=== PATIENT | male | born 1985 | race Caucasian/White ===

== ENCOUNTER 2022-10-03 15:40 | Outpatient (CLI) | payer OTHER, SELFPAY ==
--- NOTE | 2022-10-03 15:00 | CRLHL7_ITS ---
For Patients: As a result of the Century Cures Act, medical imaging exams and procedure reports are released immediately into your electronic medical record. You may view this report before your referring provider. If you have questions, please contact your health care provider. INDICATION: Sinusitis. TECHNIQUE: Noncontrast CT images acquired through the paranasal sinuses. COMPARISON: CT neck 12/05/2013. FINDINGS: No air-fluid levels to suggest acute sinusitis. The right maxillary sinus is hypoplastic. Multiple small retention cysts or polyps in the maxillary sinuses, larger on the right. These have increased in size compared to the prior CT. There is mild maxillary sinus mucosal thickening bilaterally. The right ethmoid infundibulum is partially opacified. The left ethmoid infundibulum is widely patent. Severe opacification of the right frontal recess. There is otherwise mild mucosal thickening in the right frontal sinus. Mild mucosal thickening in the left frontal recess. The left frontal sinus is otherwise clear. Cuwx-us-gqrvoscm mucosal thickening in the anterior ethmoid air cells. Mild mucosal thickening in the posterior ethmoid air cells. Mild mucosal thickening in the sphenoid sinuses. The sphenoethmoidal recesses are widely patent. Elongated opacities within the bilateral mid nasal cavity, larger on the right. There is 5 mm leftward nasal septal deviation. Trace right mastoid fluid. IMPRESSION: 1. Multiple small retention cysts or polyps in the maxillary sinuses, larger on the right. The right ethmoid infundibulum is partially opacified. Elongated opacities within the bilateral mid nasal cavity raise the possibility of underlying lesions, such as polyps. Direct visualization is offered for further evaluation. 2. Severe opacification of the right frontal recess. Mevu-jq-wzohufdp opacification of the anterior ethmoid air cells. No air-fluid levels to suggest acute sinusitis. 3. Leftward nasal septal deviation. Please note that all CT scans at this facility use dose modulation, iterative reconstruction, and/or weight-based dosing when appropriate to reduce radiation dose to as low as reasonably achievable. Dictated by Valentin Yan MD @ 10/04/2022 5:21:38 PM (Electronically Signed)
== END 2022-10-03 15:41 | disposition home or self-care (01) ==
LOC: CT 15:40
PROVIDERS: PCP Family Medicine; Visit Provider Otolaryngology
DX: J32.9 Chronic sinusitis, unspecified (principal); J34.1 Cyst and mucocele of nose and nasal sinus; J34.2 Deviated nasal septum
CPT/HCPCS: 70486

== ENCOUNTER 2022-10-29 19:33 | Outpatient (CLI) | payer OTHER, SELFPAY ==
--- NOTE | 2022-11-11 12:42 | W.PM.SLEEP ---
Sleep Study Details Details Interpreting Provider: Jyoti Date of Sleep Study: 10/29/22 Sleep Study Details: STUDY TYPE:? Home ? BMI:? 31.5 ORDERING PROVIDER:Emily Montes INDICATION:? Concerns about sleep apnea ? SLEEP SUMMARY:? 244.5 minutes monitored. Note the portions of tracing with no flow signal are oxygen data removed from analysis RESPIRATORY SUMMARY:? AHI 6.6 Low oxygen 88 0.9% of study oxygen less than 90% Snoring 14.4% PERIODIC LIMB MOVEMENTS OF SLEEP:? Not recorded CARDIAC:? Range 51-102, mean 66.9 beats per minute IMPRESSION:? Mild obstructive sleep apnea RECOMMENDATION: Treatment options would depend on if the patient is symptomatic. Treatment options would include CPAP, dental appliance and/or airway expansion surgery.
== END 2022-10-29 19:34 | disposition home or self-care (01) ==
LOC: SLEEP 19:33
PROVIDERS: PCP Family Medicine; Visit Provider Otolaryngology
DX: G47.33 Obstructive sleep apnea (adult) (pediatric) (principal)
CPT/HCPCS: 95806

== ENCOUNTER 2022-12-04 10:01 | Outpatient (CLI) | payer OTHER, SELFPAY | END 2022-12-04 10:02 | disposition home or self-care (01) | LOC: LONREF 10:02 | PROVIDERS: PCP Family Medicine; Visit Provider Nurse Practitioner Family | DX: Z01.818 Encounter for other preprocedural examination (principal) | CPT/HCPCS: 80048 ==

== ENCOUNTER 2022-12-19 08:49 | Day surgery (SDC) | payer OTHER, SELFPAY ==
[2022-12-19] VITALS (14 sets, daily range): BP systolic 113–139; BP diastolic 69–94; PULSE 72–89; RESP 16; TEMP 36.4–36.9; O2SAT 95–100; BMI 28.9
--- NOTE | 2022-12-19 09:19 | W.ANESCHARGE ---
Anesthesia Charges Start Date/Time Anesthesia Start Date: 12/19/22 Anesthesia Start Time: 10:39 Stop Date/Time Anesthesia Stop Date: 12/19/22 Anesthesia Stop Time: 11:38
[2022-12-19] MEDS: OXYMETAZOLINE 0.05% NASAL SPRAY 2 SPRAY NOSTRIL-B (09:20)
[2022-12-19] MEDS: LACTATED RINGERS 1000 ML 1,000 ML 100 ML IV (09:30)
[2022-12-19] MEDS: SODIUM CHLORIDE 0.9 % (FLUSH) 10 ML SYRINGE IVF (09:37)
[2022-12-19] MEDS: COCAINE HCL 4 % 4 ML SOLUTION NOSTRIL-B (10:55)
[2022-12-19] MEDS: BUPIVACAINE 0.5%/EPINEPHRINE 0.9 MG (30.9 ML) INJECTION (10:56)
[2022-12-19] MEDS: AYR SALINE NASAL GEL 1 APPLIC NOSTRIL-B (11:01)
[2022-12-19] MEDS: hydrOXYzine pamoate 25 MG CAPSULE PO (11:13)
[2022-12-19] MEDS: MUPIROCIN 1 GM PACKET 1 APPLIC TOPICAL (11:19)
--- NOTE | 2022-12-19 11:28 | W.PM.ENTPROC ---
Procedure Note Date of procedure: 12/19/22 Procedure: Preoperative diagnosis bilateral ethmoid sinusitis, right frontal sinusitis, deviated septum, inferior turbinate hypertrophy, enlargement left and right middle turbinates, nasal obstruction, headache Postoperative diagnosis same plus polyps left middle meatus Procedure is nasal septoplasty, submucous partial resection inferior turbinate bilateral, endoscopic left nasal polypectomy, ethmoidectomy complete, right endoscopic ethmoidectomy complete and right frontal balloon sinus dilation Noted Appthority image guidance with good registration was used throughout the procedure. Under general endotracheal anesthesia patient was prepped and draped in usual fashion the nose injected and decongested. A right hemitransfixion incision was made left anterior and posterior tunnels were created. A vertical incision was made through the cartilage anterior to the bone and a right posterior tunnel create. the posterior deflected portions of septal bone and cartilage was resected by cutting above and below with an angled scissors and removing the piece with the Desmond forceps. This piece was trimmed and returned to the midline of the nasal septum. A stab incision was made in the anterior of the right inferior turbinate a tunnel created with a Samia dissector. Anterior conservative anterior submucous resection was performed with Leona forceps. Hemostasis was achieved with Coblation Wand and then that was used to cauterize intramurally in the inferior 10% more posteriorly. This was repeated on the left side in identical fashion. The left middle turbinate was crushed with the Dimmitt forceps and medialized. Several polyps were visible at the middle meatal region. These were removed. The ethmoid bulla was taken down and dissection carried out in an anterior to posterior direction removing a moderate amount of polypoid tissue. This was more impressive that have been noted on the scan. On the right side of the nose the middle turbinate was markedly enlarged and was crushed with the Desmond forceps. The ethmoid bulla was taken down and dissection carried out in an anterior to posterior direction again removing a moderate amount of polypoid tissue. The frontal balloon was then and produced into the frontal recess utilizing image guidance in 2 dilations were performed on the right frontal sinus drainage channel. The hemitransfixion had already been closed with 2 4-0 chromic sutures. Silastic stents were secured with 2 3-0 nylon sutures. a Merocel pack was placed in each middle meatus. The patient procedure well was taken recovery in satisfactory condition. Blood loss during procedure less than 50 mL. Surgeon: José Antonio Martell MD
--- NOTE | 2022-12-19 11:36 | W.ANESCHARGE ---
Anesthesia Charges Start Date/Time Anesthesia Start Date: 12/19/22 Anesthesia Start Time: 10:39 Stop Date/Time Anesthesia Stop Date: 12/19/22 Anesthesia Stop Time: 11:38
[2022-12-19] MEDS: fentaNYL 100 MCG/2 ML inj 50 MCG IVP (11:39)
[2022-12-19] MEDS: ACETAMINOPHEN 325 MG TABLET PO (12:17)
[2022-12-19] MEDS: OXYCODONE 5 MG TABLET PO (12:18)
[2022-12-19] MEDS: IBUPROFEN 200 MG TABLET PO (12:18)
== END 2022-12-19 13:46 | disposition home or self-care (01) ==
PROVIDERS: PCP Family Medicine; Visit Provider Otolaryngology
PROC: (CPT 31231; principal; 2022-12-19 10:15)
DX: J32.2 Chronic ethmoidal sinusitis (principal); J32.1 Chronic frontal sinusitis; J34.2 Deviated nasal septum; J34.3 Hypertrophy of nasal turbinates; R51.9 Headache, unspecified; J33.8 Other polyp of sinus
CPT/HCPCS: 30520; 30140; 31237; 31253; 00160; 88305; A9270; C1726; J0330; J1100; J2405; J2704; J3010; J7120

== ENCOUNTER 2025-01-30 07:10 | Outpatient (CLI) | payer OTHER, SELFPAY | END 2025-01-30 07:11 | disposition home or self-care (01) | LOC: NFLDREF 02-02 12:55 | PROVIDERS: PCP Family Medicine; Referring Provider Family Medicine; Visit Provider Nurse Practitioner Family | DX: Z00.00 Encounter for general adult medical examination without abnormal findings (principal); G57.92 Unspecified mononeuropathy of left lower limb; E66.3 Overweight; E11.9 Type 2 diabetes mellitus without complications; Z13.9 Encounter for screening, unspecified; Z13.6 Encounter for screening for cardiovascular disorders | CPT/HCPCS: 80053; 80061; 82043; 82570 ==

== ENCOUNTER 2025-07-28 01:26 | Emergency (ER) | payer OTHER, SELFPAY ==
--- OUTSIDE RECORDS SUMMARY | 2025-07-28 01:29 | XMS_ITS | Clinical Summary ---
Author Organization [facility] Address [address] [place] [address] Care Team Providers Care Product Support Analyst Name Role Phone Chapin Helms MD Primary Care Provider [phone] Allergies No known active allergies Medications MedicationSigDispense QuantityRefillsLast FilledStart DateEnd DateStatus oxyCODONE (ROXICODONE) 5 MG tablet Take 1 tablet (5 mg) by mouth every 6 hours as needed for pain 10 tablet 08/30/2019Active Social History Tobacco UseTypesPacks/DayYears UsedDateSmoking Tobacco: Never AssessedSex and Gender InformationValueDate RecordedSex Assigned at BirthNot on fileLegal Sex Male08/30/2019 2:49 PM CSTGender IdentityNot on fileSexual OrientationNot on file Last Filed Vital Signs Vital SignReadingTime TakenCommentsBlood Ltjluuwh810/1377308/30/2019 2:55 PM MERCHANT [employer]OR Pulse--Igijkaabgft42.7 ??C (99.9 ??F)08/30/2019 2:55 PM CSTRespiratory Rate16 08/30/2019 2:55 PM CSTOxygen Aygmwaxjxi32%08/30/2019 2:55 PM CSTInhaled Oxygen Concentration--Klifis16.6 kg (180 lb)08/30/2019 2:55 PM HAPHdlobp934.3 cm (5' 9)08/30/2019 2:55 PM CSTBody Mass Index26.58008/30/2019 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
[2025-07-28 01:54] VITALS: BP 149/81; PULSE 87; RESP 18; TEMP 36.1; O2SAT 97; BMI 32.5
--- NOTE | 2025-07-28 02:09 | CRLHL7_ITS ---
For Patients: As a result of the Century Cures Act, medical imaging exams and procedure reports are released immediately into your electronic medical record. You may view this report before your referring provider. If you have questions, please contact your health care provider. INDICATION: Right-sided abdominal pain. TECHNIQUE: CT abdomen and pelvis acquired with 98 cc Isovue 370 IV contrast. COMPARISON: None. FINDINGS: Lower chest: Unremarkable. Liver: Unremarkable. Normal in size and attenuation. No suspicious masses. Gallbladder and bile ducts: Unremarkable. No stones or inflammation. No biliary ductal dilatation. Spleen: Unremarkable. Normal in size. No masses. Adrenal glands: Unremarkable. No nodules. Pancreas: Unremarkable. No mass or inflammation. Kidneys: 2 mm calculus at the right ureterovesical junction. Mild right hydroureteronephrosis. Delayed right nephrogram. No stones or hydronephrosis of the left kidney. GI tract: Unremarkable. Normal in caliber. No evidence of obstruction. Normal appendix. Lymph nodes: No lymphadenopathy. Vasculature: Unremarkable. Omentum/Peritoneum/Abdominal Wall: Unremarkable. No free air or significant free fluid. Pelvis: Unremarkable. Bones: Unremarkable for age. IMPRESSION: 2 mm right ureterovesical junction calculus with mild right hydroureteronephrosis and delayed right nephrogram. Please note that all CT scans at this facility use dose modulation, iterative reconstruction, and/or weight-based dosing when appropriate to reduce radiation dose to as low as reasonably achievable. Dictated by Cory Santamaria MD @ 07/28/2025 3:07:23 AM (Electronically Signed)
--- NOTE | 2025-07-28 02:11 | ED.ABDPAIN ---
HPI - Abdominal Pain General Chief Complaint: Abdominal Pain Stated Complaint: right side abdominal pain Time Seen by Provider: 07/28/25 02:03 History of Present Illness HPI narrative: Patient is a 40-year-old gentleman who had the abrupt onset of right-sided flank and abdominal pain proximally 4 hours ago. He is having significant nausea and vomiting. He has had no fevers no chills no night sweats no hematuria. The pain localizes to the right flank with extension to the right CVA. Patient has not had any recent travel. No BISQUE KILN DRAWER symptoms no chest pain no shortness of breath no changes bowel or bladder recently. Related Data Previous Rx's ?Medication ?Instructions ?Recorded blood glucose control, normal #1 ea 02/01/25 blood sugar diagnostic #100 ea 02/01/25 blood-glucose meter #1 ea 02/01/25 lancets #100 ea 02/01/25 glipizide 5 mg tablet 5 mg PO QDAY #90 tabs 07/21/25 tamsulosin 0.4 mg capsule 0.4 mg PO HS #30 caps 07/28/25 Allergies Allergy/AdvReac Type Severity Reaction Status Date / Time No Known Allergies Allergy Verified 01/30/25 07:08 Review of Systems Status of ROS Reports: 10 or more systems reviewed and unremarkable except as noted in History and below PFSH [facility] Medical History Overweight ?E66.3 - Overweight (ICD-10) Neuropathy of left foot ?G57.92 - Unspecified mononeuropathy of left lower limb (ICD-10) Type 2 diabetes mellitus ?E11.9 - Type 2 diabetes mellitus without complications (ICD-10) Surgical History H/O nasal septoplasty ?Z98.890 - Other specified postprocedural states (ICD-10) S/P wrist surgery ?Z98.890 - Other specified postprocedural states (ICD-10) History of vasectomy ?Z98.52 - Vasectomy status (ICD-10) Family History Father Diabetes Mother Diabetes Social History Smoking Status: Never smoker How often do you have a drink containing alcohol: never AUDIT-C Alcohol total score: 0 Non-prescribed substance use: denies use Caffeine: Yes (1 c/day coffee) Exam Narrative: Exam Narrative: EXAM GENERAL: Patient appears acutely distressed holding his right flank and vomiting. EYES: No scleral icterus. ENT: Tympanic membranes and oropharynx normal. THYROID: no thyroid nodules or thyromegaly. LYMPH: No supraclavicular or cervical lymphadenopathy. SKIN: Visible skin seen during exam normal or with benign process only. EXT: No dependent lower extremity pedal edema. HEART: Regular rate and rhythm with no murmurs, rubs, or gallops. LUNGS: Clear to auscultation bilaterally with no crackles or wheezes. ABD: Soft, non tender, non distended. PSYCH: Good eye contact, speech is not pressured. Const: Vital Signs, click to edit/add: Vital Signs - 24 hr 07/28/25 01:54 Temperature 97.0 F L Pulse Rate [Right Pulse Oximeter] 87 Respiratory Rate 18 Blood Pressure [Ri ght Upper Arm] 149/81 H Pulse Oximetry 97 Oxygen Delivery Me thod Room Air Course Course ED Course: Patient seen examined. Normal saline given Toradol and Zofran dosed. CBC CMP UA CT abdomen pelvis pending. Vital Signs Vital signs: Initial Vital Signs Temperature 97.0 F L 07/28/25 01:54 Temperature Source Temporal Artery Scan 07/28/25 01:54 Pulse Rate 87 07/28/25 01:54 Respiratory Rate 18 07/28/25 01:54 Blood Pressure 149/81 H 07/28/25 01:54 Blood Pressure Mean 103 07/28/25 01:54 Blood Pressure Position Sitting 07/28/25 01:54 Pulse Oximetry 97 07/28/25 01:54 Oxygen Delivery Method Room Air 07/28/25 01:54 Vital Signs Temperature 97.0 F L 07/28/25 01:54 Pulse Rate 87 07/28/25 01:54 Respiratory Rate 18 07/28/25 01:54 Blood Pressure 149/81 H 07/28/25 01:54 Pulse Oximetry 97 07/28/25 01:54 Oxygen Delivery Method Room Air 07/28/25 01:54 Temperature 97.0 F L 07/28/25 01:54 Pulse Rate 87 07/28/25 01:54 Respiratory Rate 18 07/28/25 01:54 Blood Pressure 149/81 H 07/28/25 01:54 Pulse Oximetry 97 07/28/25 01:54 Oxygen Delivery Method Room Air 07/28/25 01:54 Medications Administered Medications: Discontinued Medications Generic Name Dose Route Start Last Admin Trade Name Freq PRN Reason Stop Dose Admin Hydromorphone HCl 0.5 mg 07/28/25 03:00 07/28/25 03:04 Hydromorphone 0.5 Mg/0.5 Ml Inj IVP 07/28/25 03:01 0.5 mg ONCE ONE Administration Sodium Chloride 1,000 mls @ 1,000 mls/hr 07/28/25 02:10 07/28/25 02:10 0.9 % Sodium Chloride 1000 Ml IV 07/28/25 03:09 1,000 mls/hr .Q1H ALEJANDRA Administration Ketorolac Tromethamine 30 mg 07/28/25 02:09 07/28/25 02:13 Ketorolac 30 Mg/Ml Inj IVP 07/28/25 02:10 30 mg ONCE ONE Administration Ondansetron HCl 4 mg 07/28/25 02:09 07/28/25 02:12 Ondansetron 2 Mg/Ml Inj IVP 07/28/25 02:10 4 mg ONCE ONE Administration MDM - Abdominal Pain MDM Narrative Medical decision making narrative: Patient presents with right flank pain and has a 2 mm kidney stone. I did give him a L normal saline 30 mg of Toradol 0.5 mg of Dilaudid with resolution of his symptoms. He also received 4 mg of Zofran. This time will discharge him home with Percocet Zofran and Flomax as well as stone collection calf plenty of rest plenty fluids follow-up as needed. Lab Data Labs: Lab Results 07/28/25 Range/Units 02:03 WBC 11.19 H (4.50-11.00) K/uL RBC 5.24 (4.30-5.90) m/uL Hgb 14.8 (13.5-17.5) gm/dL Hct 42.2 (37.0-53.0) % MCV 81 (80-100) fL MCH 28 (26-34) pg MCHC 35 (32-36) gm/dL RDW Coeff of Maury 12.2 (11.5-15.5) % Plt Count 267 (140-440) K/uL Neut % (Auto) 79.5 H (42.0-72.0) % Lymph % (Auto) 16.1 L (20-44) % [place] % (Auto) 3.5 (0.0-11.0) % Eos % (Auto) 0.4 (0.0-7.0) % Baso % (Auto) 0.3 (0.0-3.0) % Neut # (Auto) 8.90 H (1.7-7.0) K/uL Lymph # (Auto) 1.80 (0.90-2.90) K/uL [place] # (Auto) 0.40 (0.00-0.90) K/UL Eos # (Auto) 0.00 (0.00-0.50) K/uL Baso # (Auto) 0.00 (0.00-0.30) K/uL Abs Immat Gran (auto) 0.00 (0.00-0.30) K/uL Imm/Tot Granulo (auto) 0.2 % Sodium 133 L (135-149) mmol/L Potassium 4.6 (3.6-5.1) mmol/L Chloride 101 (96-114) mmol/L Carbon Dioxide 22 (20-32) mmol/L Anion Gap 10 (7-15) mEq/L BUN 20 (5-24) mg/dL Creatinine 1.0 (0.5-1.5) mg/dL Estimated Creat Clear 96.23 Estimated GFR 96 ml/min Glucose 180 H (60-115) mg/dL Calcium 9.5 (8.4-10.6) mg/dL Total Bilirubin 1.4 (0.1-1.5) mg/dL AST 34 (12-35) U/L ALT 37 (4-50) U/L Alkaline Phosphatase 58 (40-150) U/L Total Protein 7.7 (6.0-8.3) g/dL Albumin 4.6 (3.3-5.0) g/dL Urine Color Yellow (Yellow) Urine Appearance Clear (Clear) Urine pH 5.5 (5.0-8.5) Ur Specific [place] 1.025 (1.000-1.030) Urine Protein Negative (Negative) Urine Glucose (UA) Trace A (Negative) Urine Ketones 3+ A (Negative) Urine Blood 3+ A (Negative) Urine Nitrite Negative (Negative) Urine Bilirubin Negative (Negative) Urine Urobilinogen 0.2 (0.2-1.0) Ur Leukocyte Esterase Negative (Negative) Urine RBC 10-25 A (0-2) Urine WBC 0-2 (0-5) Ur Squamous Epith Cells Few (None-Few) Urine Bacteria Few A (None) Discharge Plan Discharge Clinical Impression: Kidney stone Patient Disposition: Home, Self-Care Condition: Stable Instructions: Kidney Stones (ED) Additional Instructions: 2 L of fluid per day Strain urine Percocet as needed for pain Zofran as needed for vomiting Flomax as directed Follow-up as needed. Activity Level: No Restrictions Discharge Diet: Regular Prescriptions: New tamsulosin 0.4 mg capsule 0.4 mg PO HS Qty: 30 2RF No Action (DME) blood sugar diagnostic Strip See Rx Instructions .Route Qty: 100 3RF Rx Instructions: Check blood glucose levels t.i.d. (DME) lancets Misc See Rx Instructions .Route Qty: 100 3RF Rx Instructions: check blood glucose levels TID (DME) blood glucose control, normal Solution See Rx Instructions .Route Qty: 1 1RF Rx Instructions: use as directed (DME) blood-glucose meter Kit See Rx Instructions .Route Qty: 1 0RF Rx Instructions: As directed glipizide 5 mg tablet 5 mg PO QDAY Qty: 90 0RF Follow Up/Referrals: Vicki Rawls, CERTIFIED ENERGY MANAGER [Primary Care Provider, Family Practice] Stand Alone Forms: MyHealth Info Instructions
[2025-07-28] MEDS: ONDANSETRON 2 MG/ML inj 4 MG IVP (02:12)
[2025-07-28 02:17] LABS: Hematocrit* 42.2 % (37.0-53.0); Hemoglobin* 14.8 gm/dL (13.5-17.5); Immature Granulocytes Pct Auto 0.2 %; Lymphocytes Absolute Auto 1.80 K/uL (0.90-2.90); Mean Corpuscular HGB Conc 35 gm/dL (32-36); Mean Corpuscular Hemoglobin 28 pg (26-34); Mean Corpuscular Volume 81 fL (80-100); RDW Coefficient of Variation % 12.2 % (11.5-15.5); Red Blood Count* 5.24 m/uL (4.30-5.90); White Blood Count* 11.19 K/uL (4.50-11.00)
[2025-07-28 02:18] LABS: Appearance Urine Clear (Clear); Immature Granulocytes Abs Auto 0.00 K/uL (0.00-0.30); Slide Review Reflex No
[2025-07-28 02:31] LABS: Albumin* 4.6 g/dL (3.3-5.0); Chloride* 101 mmol/L (96-114); Potassium* 4.6 mmol/L (3.6-5.1); Sodium* 133 mmol/L (135-149)
[2025-07-28 02:33] LABS: Blood Urea Nitrogen* 20 mg/dL (5-24); Creatinine* 1.0 mg/dL (0.5-1.5); Est. Creatinine Clearance* 96.23; Estimated Glomerular Filt Rate 96 ml/min
[2025-07-28 02:34] LABS: Alanine Aminotransferase* 37 U/L (4-50); Alkaline Phosphatase* 58 U/L (40-150); Anion Gap 10 mEq/L (7-15); Aspartate Amino Transferase* 34 U/L (12-35); Bilirubin Total* 1.4 mg/dL (0.1-1.5); Calcium* 9.5 mg/dL (8.4-10.6); Carbon Dioxide* 22 mmol/L (20-32); Glucose* 180 mg/dL (60-115); Total Protein* 7.7 g/dL (6.0-8.3)
[2025-07-28 03:42] VITALS: BP 126/89; PULSE 81; RESP 18; O2SAT 95
[2025-07-28] MEDS: OxyCODONE/APAP 5-325 TABLET 1 TAB PO (03:55)
== END 2025-07-28 04:25 | disposition home or self-care (01) ==
PROVIDERS: Emergency Provider Internal Medicine; PCP Nurse Practitioner Family
DX: N20.0 Calculus of kidney (principal)
CPT/HCPCS: 36415; 74177; 80053; 81001; 81003; 85025; 87086; 96374; 96375; 96376; 99284; 99285; A9270; J1171; J1885; J2405; J7030; Q9967